=== PATIENT | male | born 1995 | race Caucasian/White ===

== ENCOUNTER 2016-10-06 12:02 | Observation (INO) | payer OTHER ==
[~2016-10-06 12:02] MED LIST: DEXAMETHASONE SOD PHOSPHATE INJ 4 MG/1 ML VIAL ONE; GLYCOPYRROLATE INJ 0.4 MG/2 ML VIAL ONE; LIDOCAINE 2% INJ-PF (20 MG/ML) 10 ML AMPUL ONE; NEOSTIGMINE METHYLSULFATE 10 MG/10 ML VIAL ONE; ONDANSETRON HCL INJ/PF 4 MG/2 ML SDV ONE; ROCURONIUM BROMIDE INJ 50 MG/5 ML VIAL IV ONE; SUCCINYLCHOLINE CHLORIDE INJ 200 MG/10 ML VIAL ONE
[2016-10-06 12:51] LABS: APPEARANCE,URINE CLEAR; BILIRUBIN,URINE NEGATIVE (NEGATIVE); GLUCOSE, URINE NEGATIVE (NEGATIVE); KETONES,URINE NEGATIVE (NEGATIVE); LEUKOCYTE ESTERASE,URINE NEGATIVE (NEGATIVE); NITRITE,URINE NEGATIVE (NEGATIVE); PROTEIN,URINE NEGATIVE (NEGATIVE); URINE SPECIFIC GRAVITY 1.005; UROBILINOGEN,URINE NEGATIVE mg/dL (<2.0)
[2016-10-06] MEDS ORDERED: ONDANSETRON 4 MG TAB.RAPDIS PO ONE (13:00)
--- NOTE | 2016-10-06 13:06 | ER Document Report ---
ED Medical Screen (RME) - General Chief Complaint: Abdominal Pain Stated Complaint: ABDOMINAL PAIN Time Seen by Provider: 10/06/16 12:59 Notes: Patient is a 21-year-old transgendered female who prefers to be called "Anastasia", presents with 1 day of worsening right lower quadrant abdominal pain that is described as cramping. She says the pain is worse when she moves and when she palpates the area. She was seen in urgent care, had a negative strep test for the sore throat, and sent to the ER for further evaluation of the abdominal pain. No prior surgeries. PE: RLQ abdominal tenderness. RRR. Lungs CTAB. I have greeted and performed a rapid initial assessment of this patient. A comprehensive ED assessment and evaluation of the patient, analysis of test results and completion of the medical decision making process will be conducted by additional ED providers. TRAVEL OUTSIDE OF THE [place] IN LAST 30 DAYS: No - Related Data Allergies/Adverse Reactions: No Known Allergies Allergy (Verified 10/06/16 12:57) Home Medications: Current Home Medications Estradiol 2 mg PO DAILY 10/06/16 [History] No Home Medications 10/06/16 [History] Spironolactone [Aldactone] 50 mg PO DAILY 10/06/16 [History] Past Medical History - Social History Chew tobacco use (# tins/day): No Frequency of alcohol use: Occasional Drug Abuse: None Renal/ Medical History: Denies: Hx Peritoneal Dialysis Surgical Hx: Negative Physical Exam - Vital signs Vitals: Temp Pulse Resp BP Pulse Ox 98.0 F 97 16 128/81 H 98 10/06/16 12:24 10/06/16 12:24 10/06/16 12:24 10/06/16 12:24 10/06/16 12:24 Course - Vital Signs Vital signs: Temp Pulse Resp BP Pulse Ox 98.0 F 97 16 128/81 H 98 10/06/16 12:24 10/06/16 12:24 10/06/16 12:24 10/06/16 12:24 10/06/16 12:24
[2016-10-06 13:35] LABS: ABSOLUTE NEUT (AUTO) 12.7 10^3/uL (1.7-8.2); BASOPHILS % (AUTO) 0.1 % (0-2); EOSINOPHILS % (AUTO) 0.1 % (0-6); HEMATOCRIT 43.9 % (37.9-51.0); HEMOGLOBIN 14.7 g/dL (13.5-17.0); HGB HCT DIFFERENCE 0.2; LYMPHOCYTES % (AUTO) 12.1 % (13-45); MEAN CORPUSCULAR HEMOGLOBIN 29.2 pg (27.0-33.4); MEAN CORPUSCULAR HGB CONC 33.4 g/dL (32.0-36.0); MEAN CORPUSCULAR VOLUME 87 fl (80-97); MONOCYTES % (AUTO) 12.2 % (3-13); RED BLOOD COUNT 5.03 10^6/uL (4.35-5.55); RED CELL DISTRIBUTION WIDTH 12.6 % (11.5-14.0); SEGMENTED NEUTROPHILS % (AUTO) 75.5 % (42-78); WHITE BLOOD COUNT 16.8 10^3/uL (4.0-10.5)
--- NOTE | 2016-10-06 13:38 | ER Document Report ---
ED GI/ - General Chief Complaint: Abdominal Pain Stated Complaint: ABDOMINAL PAIN Time Seen by Provider: 10/06/16 12:59 Mode of Arrival: Ambulatory Information source: Patient Notes: 1-year-old transgender from male to female presents to ED for 1 day of lower right quadrant pain. Tender to palpation. Says the pain has been getting worse when she moves. She went to urgent care this morning and was tested for strep which was negative she had a UA sent and she is here today to get ruled out for right lower quadrant abdominal pain and fever. TRAVEL OUTSIDE OF THE [place] IN LAST 30 DAYS: No - HPI Patient complains to provider of: Abdominal pain Onset: Other - 1 Timing/Duration: Gradual Quality of pain: Cramping Severity at maximum: Moderate Severity in ED: Moderate Pain Level: 4 Location: RLQ Associated symptoms: Fever, Nausea, Other - Lower quadrant abdominal pain Exacerbated by: Movement, Walking Relieved by: Denies Similar symptoms previously: No Recently seen / treated by doctor: Yes - Related Data Allergies/Adverse Reactions: No Known Allergies Allergy (Verified 10/06/16 12:57) Home Medications: Current Home Medications Estradiol 2 mg PO DAILY 10/06/16 [History] No Home Medications 10/06/16 [History] Spironolactone [Aldactone] 50 mg PO DAILY 10/06/16 [History] Past Medical History - General Information source: Patient - Social History Smoking Status: Never Smoker Cigarette use (# per day): No Chew tobacco use (# tins/day): No Smoking Education Provided: No Frequency of alcohol use: Occasional Drug Abuse: None Family History: Reviewed & Not Pertinent Patient has suicidal ideation: No Patient has homicidal ideation: No - Past Medical History Cardiac Medical History: Reports: None Pulmonary Medical History: Reports: None EENT Medical History: Reports: None Neurological Medical History: Reports: None Endocrine Medical History: Reports: None Renal/ Medical History: Reports: None Malignancy Medical History: Reports None GI Medical History: Reports: None Musculoskeltal Medical History: Reports None Skin Medical History: Reports None Psychiatric Medical History: Reports: None Traumatic Medical History: Reports: None Infectious Medical History: Reports: None Surgical Hx: Negative Review of Systems - Review of Systems Constitutional: Fever EENT: No symptoms reported Cardiovascular: No symptoms reported Respiratory: No symptoms reported Gastrointestinal: Abdominal pain, Nausea Genitourinary: No symptoms reported Male Genitourinary: No symptoms reported Musculoskeletal: No symptoms reported Skin: No symptoms reported Hematologic/Lymphatic: No symptoms reported Neurological/Psychological: No symptoms reported -: Yes All other systems reviewed and negative Physical Exam - Vital signs Vitals: Temp Pulse Resp BP Pulse Ox 98.0 F 97 16 128/81 H 98 10/06/16 12:24 10/06/16 12:24 10/06/16 12:24 10/06/16 12:24 10/06/16 12:24 Interpretation: Normal - General General appearance: Appears well, Alert - HEENT Head: Normocephalic, Atraumatic Eyes: Normal Pupils: PERRL - Respiratory Respiratory status: No respiratory distress Chest status: Nontender Breath sounds: Normal Chest palpation: Normal - Cardiovascular Rhythm: Regular Heart sounds: Normal auscultation Murmur: No - Abdominal Inspection: Normal Distension: No distension Bowel sounds: Normal Tenderness: Tender Organomegaly: No organomegaly - Back Back: Normal, Nontender - Extremities General upper extremity: Normal inspection, Nontender, Normal color, Normal ROM , Normal temperature General lower extremity: Normal inspection, Nontender, Normal color, Normal ROM , Normal temperature, Normal weight bearing. No: Hebert's sign - Neurological Neuro grossly intact: Yes Cognition: Normal Orientation: AAOx4 Fenton Coma Scale Eye Opening: Spontaneous Gelacio Coma Scale Verbal: Oriented Fenton Coma Scale Motor: Obeys Commands Gelacio Coma Scale Total: 15 Speech: Normal Motor strength normal: LUE, RUE, LLE, RLE Sensory: Normal - Psychological Associated symptoms: Normal affect, Normal mood - Skin Skin Temperature: Warm Skin Moisture: Dry Skin Color: Normal Course - Re-evaluation Re-evalutation: 10/06/16 16:[address] Panchal surgeon. Will start and Ancef and IV fluids. Doctor Panchal will come down and see the patient. - Vital Signs Vital signs: Temp Pulse Resp BP Pulse Ox 100.1 F 115 H 18 125/74 99 10/06/16 17:26 10/06/16 17:26 10/06/16 17:26 10/06/16 17:26 10/06/16 17:26 - Laboratory Result Diagrams: 10/06/16 13:15 10/06/16 13:15 Laboratory results interpreted by me: 10/06/16 13:15 WBC 16.8 H Lymphocytes % 12.1 L Absolute Neutrophils 12.7 H Absolute Monocytes 2.0 H - Diagnostic Test Radiology reviewed: Image reviewed, Reports reviewed Discharge - Discharge Clinical Impression: Appendicitis Qualifiers: Appendicitis type: acute appendicitis Acute appendicitis type: unspecified acute appendicitis type Qualified Code(s): K35.80 - Unspecified acute appendicitis Admitting Provider: Surgicalist - [facility] Unit Admitted: Surgical Floor
[2016-10-06 13:55] LABS: ALANINE AMINOTRANSFERASE 27 U/L (21-72); ALBUMIN 4.2 g/dL (3.5-5.0); ALKALINE PHOSPHATASE 56 U/L (38-126); ANION GAP 12 (5-19); ASPARTATE AMINO TRANSFERASE 22 U/L (17-59); BILIRUBIN,DIRECT 0.3 mg/dL (0.0-0.4); BILIRUBIN,TOTAL 1.3 mg/dL (0.2-1.3); BLOOD UREA NITROGEN 10 mg/dL (7-20); CALCIUM 9.5 mg/dL (8.4-10.2); CARBON DIOXIDE 26 mmol/L (22-30); CHLORIDE 100 mmol/L (98-107); CREATININE RESULT 0.83 mg/dL (0.52-1.25); GLUCOSE 95 mg/dL (75-110); POTASSIUM 3.8 mmol/L (3.6-5.0); SODIUM 137.7 mmol/L (137-145); TOTAL PROTEIN 7.5 g/dL (6.3-8.2)
--- NOTE | 2016-10-06 16:10 | RADIOLOGY REPORT (SQ) ---
EXAM DESCRIPTION: CT ABD/PELVIS WITH IV ORAL COMPLETED DATE/TIME: 10/06/2016 3:59 pm REASON FOR STUDY: RLQ abdominal pain COMPARISON: None. TECHNIQUE: CT scan of the abdomen and pelvis performed with intravenous and oral contrast using [place] scanning technique with dynamic intravenous contrast injection. Images reviewed with lung, soft t issue, and bone windows. Reconstructed coronal and sagittal MPR images reviewed. Delayed images for e valuation of the urinary system also acquired. All images stored on PACS. All CT scanners at this facility use dose modulation, iterative reconstruction, and/or weight based d osing when appropriate to reduce radiation dose to as low as reasonably achievable (ALARA). [facility]: Dose Right [facility]: CareDose [facility]: Dose Right [facility]: Teradose 4D [facility]: GameOn CONTRAST TYPE AND DOSE: 79 mL Isovue 370- low osmolar. RENAL FUNCTION: GFR > 60. RADIATION DOSE: 16.52mGy. LIMITATIONS: None. FINDINGS: LOWER CHEST: No significant findings. No nodules or infiltrates. LIVER: Normal size. No masses or dilated ducts. SPLEEN: Normal size. No focal lesions. PANCREAS: No masses. No significant calcifications. No adjacent inflammation or peripancreatic fluid collections. Pancreatic duct not dilated. GALLBLADDER: No identified stones by CT criteria. No inflammatory changes to suggest cholecystitis. ADRENAL GLANDS: No significant masses or asymmetry. RIGHT KIDNEY AND URETER: No solid masses. No significant calcification. No hydronephrosis or hydroure ter. LEFT KIDNEY AND URETER: No solid masses. No significant calcification. No hydronephrosis or hydrouret er. AORTA AND VESSELS: No aneurysm. No dissection. Renal arteries, SMA, celiac without stenosis. RETROPERITONEUM: No retroperitoneal adenopathy, hemorrhage or masses. BOWEL AND PERITONEAL CAVITY: No obstruction. No visualized masses. No free fluid. No inflammatory ch anges or thickening of bowel wall. APPENDIX: Inflammatory changes surrounding mildly dilated, unopacified appendix. PELVIS: No significant masses. Normal bladder. No free fluid. ABDOMINAL WALL: Bilateral inguinal hernias containing fluid. BONES: No significant or acute findings. OTHER: No other significant finding. IMPRESSION: Acute appendicitis. TECHNICAL DOCUMENTATION: JOB ID: [id number] Quality ID # [id number]: Final reports with documentation of one or more dose reduction techniques (e.g., Au tomated exposure control, adjustment of the mA and/or kV according to patient size, use of iterative reconstruction technique) 2010 [employer]- All Rights Reserved
[2016-10-06] MEDS ORDERED: NORMAL SALINE 1000 ML 1,000 ML IV ONE ×2 (16:46)
[2016-10-06] MEDS ORDERED: CEFAZOLIN 2 GM/D5W RTU 50 ML IV ONE (16:46)
--- NOTE | 2016-10-06 17:31 | PDOC H&P ---
History of Present Illness Admission Date/PCP: 10/06/16 17:05 History of Present Illness: MELISA ROJAS is a 21 year old male who presents to the emergency room with a one-day history of right lower quadrant pain, with subjective fever and chills. There is no history of change in bowel habits, urinary symptoms, nausea vomiting or previous episodes. The patient is a transgender male to female, over the past 2 years. Patient's last meal was last night. Patient underwent CT scan of the abdomen, which revealed findings consistent with acute appendicitis. Past Medical History Cardiac Medical History: Reports: None Pulmonary Medical History: Reports: None EENT Medical History: Reports: None Neurological Medical History: Reports: None Endocrine Medical History: Reports: None Renal/ Medical History: Reports: None Malignancy Medical History: Reports: None GI Medical History: Reports: None Musculoskeltal Medical History: Reports: None Skin Medical History: Reports: None Psychiatric Medical History: Reports: None Traumatic Medical History: Reports: None Infectious Medical History: Reports: None Social History Smoking Status: Never Smoker Family History Family History: Reviewed & Not Pertinent Parental Family History Reviewed: No - Not applicable Children Family History Reviewed: No - Not applicable. Sibling(s) Family History Reviewed.: No - Not applicable and would never seen Medication/Allergy Home Medications: Estradiol 2 mg PO DAILY 10/06/16 No Home Medications 10/06/16 Spironolactone [Aldactone] 50 mg PO DAILY 10/06/16 Allergies/Adverse Reactions: No Known Allergies Allergy (Verified 10/06/16 12:57) Physical Exam Vital Signs: Temp Pulse Resp BP Pulse Ox 98.0 F 97 16 128/81 H 98 10/06/16 12:24 10/06/16 12:24 10/06/16 12:24 10/06/16 12:24 10/06/16 12:24 General appearance: PRESENT: no acute distress, cooperative, thin, well- developed, well-nourished Head exam: PRESENT: atraumatic Eye exam: PRESENT: EOMI - Well-developed well-nourished atraumatic, PERRLA Mouth exam: PRESENT: moist, neck supple, tongue midline Neck exam: PRESENT: full ROM. ABSENT: JVD, lymphadenopathy, tenderness - Range of motion, thyromegaly, tracheal deviation - noted radiation Cardiovascular exam: PRESENT: RRR - With tolerating GI/Abdominal exam: PRESENT: guarding, normal bowel sounds, soft, tenderness Results Impressions: Abdomen/Pelvis CT 10/06/16 00:00 IMPRESSION: Acute appendicitis. Assessment & Plan - Plan Summary Plan Summary: Patient will be taken to the OR emergently.
[2016-10-06] MEDS ORDERED: MIDAZOLAM 2 MG/2 ML INJ ONE (17:32)
[2016-10-06] MEDS ORDERED: DEXMEDETOMIDINE INJ 80 MCG/20 ML VIAL IV ONE (17:33)
[2016-10-06] MEDS ORDERED: EPHEDRINE SULFATE INJ 50 MG/1 ML AMPULE ONE (17:33)
[2016-10-06] MEDS ORDERED: FENTANYL CITRATE INJ/PF 100 MCG/2 ML AMPUL ONE ×2 (17:33→17:34)
[2016-10-06] MEDS ORDERED: PROPOFOL INJ 200 MG/20 ML VIAL IV ONE (17:33)
[2016-10-06] MEDS ORDERED: ACETAMINOPHEN 100 ML IV ONE (17:33)
[2016-10-06] MEDS ORDERED: BUPIVACAINE HCL 0.5 % INJ/PF 30 ML SDV ONE (17:35)
[2016-10-06] MEDS ORDERED: DIPHENHYDRAMINE HCL 50 MG/ML VIAL IV PRN (17:43)
[2016-10-06] MEDS ORDERED: MEPERIDINE HCL/PF INJ 25 MG/1 ML DISP.SYRIN IV PRN (17:43)
[2016-10-06] MEDS ORDERED: FENTANYL CITRATE INJ/PF 100 MCG/2 ML AMPUL IV PRN ×3 (17:43)
[2016-10-06] MEDS ORDERED: MORPHINE SULFATE 10 MG/ML INJ IV PRN ×2 (17:43→19:10)
[2016-10-06] MEDS ORDERED: PROMETHAZINE HCL INJ 25 MG/1 ML VIAL IV PRN ×2 (17:43)
[2016-10-06] MEDS ORDERED: DEXTROSE 5%-LACTATED RINGERS 1,000 ML IV PRN (19:10)
--- NOTE | 2016-10-06 19:16 | Operative Report ---
Operative Report DATE OF SURGERY: 10/06/16 PREOPERATIVE DIAGNOSIS: Acute Appendicitis POSTOPERATIVE DIAGNOSIS: Same OPERATION: Laparoscopic Appendectomy SURGEON: EDDIE GARCIA ANESTHESIA: GA TISSUE REMOVED OR ALTERED: Appendix COMPLICATIONS: None ESTIMATED BLOOD LOSS: 10cc INTRAOPERATIVE FINDINGS: Purulent Appendicitis PROCEDURE: See Operative Report
--- NOTE | 2016-10-06 19:44 | OPERATIVE REPORT E ---
Operative Report NAME: MELISA ROJAS : 1995 AGE: 21Y DATE OF SURGERY: 10/06/2016 ROOM: ED13 PREOPERATIVE DIAGNOSIS: Acute appendicitis. POSTOPERATIVE DIAGNOSIS: Acute appendicitis. OPERATION: Laparoscopic appendectomy. SURGEON: EDDIE GARCIA M.D. ANESTHESIA: General. REPLACEMENT: Crystalloids. DRAINS: None. COMPLICATIONS: None. CONDITION: Stable. INDICATIONS FOR PROCEDURE: This 21-year-old transgender male to female presented to the Emergency Room with a 1-day history of right lower quadrant pain that began suddenly while on the way to work. This was accompanied by subjective fever and chills but without change in bowel habits or any previous symptoms. The patient presented to the Emergency Room with abdominal pain and was found to have right lower quadrant tenderness. On CT examination, the patient was noted to have acute appendicitis with leukocytosis of 16,000. A surgical referral was thus made. PROCEDURE: The patient was brought to the operating suite and placed in supine position on the operating room table. Monitoring devices were attached. IV sedation was administered, followed by the induction of general endotracheal anesthesia. The patient's abdomen was prepped and draped in the usual sterile manner, and then a timeout was achieved. After all concurred, Marcaine incision was injected just below the umbilicus. Then an incision was made through skin and subcutaneous tissue down to the linea alba. Two 0 Vicryl stay sutures were placed in the linea alba, and an incision was made between the 2 stay sutures. We then grasped the peritoneum and opened the peritoneum between 2 hemostats and entered the peritoneal cavity. Digital exploration was done to insure there was no viscera attached to the anterior abdominal wall, and then a Margareth trocar was then inserted and secured with two 0 Vicryl stay sutures. Laparoscopic camera and light source were inserted, and there was no evidence of any bleeding or injury. We then placed the remaining 2 trocars in the usual manner; one 5 mm suprapubic trocar was placed, and another 5 mm trocar was placed in the left lower quadrant. We then identified the appendix and mobilized it as it was somewhat retrocecal and attached to the lateral abdominal wall. After taking down the dense adhesions bluntly, we lifted the appendix and made an opening in the mesoappendix. We then used the endoscopic RAMSES to divide the mesoappendix, and this was done with 2 firings. After the dividing the mesoappendix with the second firing, we then placed the appendix in the Endo bag and removed it from the abdominal cavity. We then irrigated the right lower quadrant and saw a small bleeding point from the mesoappendix, and this was cauterized using the [place] dissector that was attached to the cautery, and the bleeding point was cauterized. After being assured of adequate hemostasis, we then irrigated again the right lower quadrant, and after adequate hemostasis was assured, we removed the two 5 mm trocars under direct vision, and then we decompressed the abdomen and removed the 10 mm trocar from the infraumbilical site. Once the abdomen was completely decompressed, we approximated the fascia just below the umbilicus using 0 Vicryl on a UR6 needle in a continuous suture. We then stapled all incisions using skin yousuf. The patient tolerated the procedure well. Sponge and instrument counts were correct. The patient was discharged to the PACU in stable condition. DICTATING PHYSICIAN: EDDIE GARCIA M.D. [id number] PHY#: [id number] ID: [id number] JOB#: [id number] ACCT: [id number] cc:EDDIE GARCIA M.D. >
[2016-10-06] MEDS: OXYCODONE-ACETAMINOPHEN 5-325 MG TABLET PO PRN (20:58)
[2016-10-07] MEDS: OXYCODONE-ACETAMINOPHEN 5-325 MG TABLET PO PRN (04:49)
[2016-10-07 04:59] LABS: ABSOLUTE LYMPHOCYTES (AUTO) 1.1 10^3/uL (0.5-4.7); ABSOLUTE MONOCYTES (AUTO) 0.6 10^3/uL (0.1-1.4); ABSOLUTE NEUT (AUTO) 11.1 10^3/uL (1.7-8.2); BASOPHILS % (AUTO) 0.1 % (0-2); HEMATOCRIT 40.7 % (37.9-51.0); HEMOGLOBIN 13.7 g/dL (13.5-17.0); HGB HCT DIFFERENCE 0.4; LYMPHOCYTES % (AUTO) 8.6 % (13-45); MEAN CORPUSCULAR HEMOGLOBIN 29.5 pg (27.0-33.4); MEAN CORPUSCULAR HGB CONC 33.8 g/dL (32.0-36.0); MEAN CORPUSCULAR VOLUME 87 fl (80-97); RED BLOOD COUNT 4.67 10^6/uL (4.35-5.55); RED CELL DISTRIBUTION WIDTH 12.5 % (11.5-14.0); SEGMENTED NEUTROPHILS % (AUTO) 86.3 % (42-78); WHITE BLOOD COUNT 12.9 10^3/uL (4.0-10.5)
--- NOTE | 2016-10-07 08:21 | PDOC PROGRESS REPORT ---
Subjective Progress Note for:: 10/07/16 Subjective:: Feels better. Tolerating liquids well. Physical Exam Vital Signs: Temp Pulse Resp BP Pulse Ox 98 F 89 16 98/46 L 97 10/07/16 01:10 10/07/16 01:10 10/07/16 01:10 10/07/16 01:10 10/07/16 01:10 Intake & Output 10/06/16 10/07/16 10/08/16 06:59 06:59 06:59 Intake Total 2150 Output Total 1002 Balance 1148 Weight 74 kg General appearance: PRESENT: no acute distress, cooperative Respiratory exam: PRESENT: clear to auscultation juno Cardiovascular exam: PRESENT: RRR GI/Abdominal exam: PRESENT: other - Soft, nondistended, very mild right lower quadrant abdominal tenderness with no peritoneal signs. Wounds clean dry and intact. Results Laboratory Results: 10/07/16 04:33 10/07/16 04:33 WBC 12.9 H RBC 4.67 Hgb 13.7 Hct 40.7 MCV 87 MCH 29.5 MCHC 33.8 RDW 12.5 Plt Count 198 Seg Neutrophils % 86.3 H Lymphocytes % 8.6 L Monocytes % 5.0 Eosinophils % 0.0 Basophils % 0.1 Absolute Neutrophils 11.1 H Absolute Lymphocytes 1.1 Absolute Monocytes 0.6 Absolute Eosinophils 0.0 Absolute Basophils 0.0 Impressions: Abdomen/Pelvis CT 10/06/16 00:00 IMPRESSION: Acute appendicitis. Assessment & Plan - Diagnosis (1) Appendicitis Qualifiers: Appendicitis type: acute appendicitis Acute appendicitis type: unspecified acute appendicitis type Qualified Code(s): K35.80 - Unspecified acute appendicitis Is this a current diagnosis for this admission?: YesPlan: Status post laparoscopic appendectomy. Patient doing well. Will plan to discharge patient home. Follow-up in our office next week.
--- NOTE | 2016-10-07 08:43 | DISCHARGE SUMMARY E ---
Discharge Summary NAME: MELISA ROJAS : 1995 AGE: 21Y ADMITTED: 10/06/2016 DISCHARGED: 10/07/2016 DISCHARGE DIAGNOSIS: Appendicitis. PROCEDURE PERFORMED DURING HOSPITALIZATION: Laparoscopic appendectomy performed by Dr. Chano Panchal on 10/06/2016. HOSPITAL COURSE: Patient underwent the above mentioned procedure. Patient did well postoperatively. Patient was tolerating a diet well with markedly improved abdominal pain at the time of discharge. Patient is now being discharged home in good condition. Patient will follow up with [facility] next week. Patient is encouraged to stay active at home and avoid strenuous activity. She may advance her diet. She may resume her home medication. ADDITIONAL MEDICATIONS: Percocet 1 p.o. q. 4 hours p.r.n. pain. DICTATING PHYSICIAN: RENAY DRUMMOND M.D. [id number] PHY#: [id number] ID: [id number] JOB#: [id number] ACCT: [id number] cc:Gela METZ PA >
[2016-10-07 09:43] VITALS: BP 119/66
== END 2016-10-07 10:00 | disposition home or self-care (01) ==
LOC: ER 12:02 → EH 17:05 → UNDOADMOB 17:05 → INTOOBSV 17:05 → 4N 17:17 → EH 20:05 → 4N 20:05 → UNDODISOB 10-07 10:00
PROC: 0DTJ4ZZ Resection of Appendix, Percutaneous Endoscopic Approach (ICD-10-PCS; principal; 2016-10-06 18:00)
DX: K35.3 Acute appendicitis with localized peritonitis (principal); F64.8 Other gender identity disorders; Z79.818 Long term (current) use of other agents affecting estrogen receptors and estrogen levels
CPT/HCPCS: 44970; 99285; 96365; 96368; 36415 ×2; 83690; 85025 ×2; 80053; 81001; 88304 ×2; 74177; J2250; J3490 ×3; J1100; S0119; J3010; J0330; J2405; J7030; J2704; J0690; J0131; 840